=== PATIENT | female | born 1945 | race Caucasian/White ===

== ENCOUNTER → 2017-11-02 | Outpatient (CLI) | payer MEDICARE | END | disposition home or self-care (01) | LOC: PCVCCLINIC 14:26 | DX: I25.10 Atherosclerotic heart disease of native coronary artery without angina pectoris (principal); E78.5 Hyperlipidemia, unspecified; I10 Essential (primary) hypertension; I45.10 Unspecified right bundle-branch block; I65.23 Occlusion and stenosis of bilateral carotid arteries; R94.31 Abnormal electrocardiogram [ECG] [EKG]; Z95.1 Presence of aortocoronary bypass graft; Z86.711 Personal history of pulmonary embolism; Z88.0 Allergy status to penicillin; Z79.82 Long term (current) use of aspirin; Z79.899 Other long term (current) drug therapy | CPT/HCPCS: 80061; 93005; G0463 ==

== ENCOUNTER → 2018-05-10 | Outpatient (CLI) | payer MEDICARE ==
--- NOTE | 2018-05-10 12:46 | PCVCIMAG ---
APPROVED REPORT Indications Stenosis Risk Factors Hypertension: Doppler Spectral Velocity Analysis PSV / EDVPSV / EDV ECA (R) 75 / 6 cm/sECA (L) 87 / 16 cm/s dICA (R) 73 / 19 cm/sdICA (L) 64 / 17 cm/s Anastasia (R) 68 / 19 cm/smICA (L) 79 / 21 cm/s pICA (R) 65 / 16 cm/spICA (L) 102 / 19 cm/s Bulb (R) 73 / 14 cm/sBulb (L) 75 / 14 cm/s dCCA (R) 74 / 14 cm/sdCCA (L) 82 / 16 cm/s mCCA (R) 81 / 14 cm/smCCA (L) 85 / 17 cm/s Vert (R) 51 / 8 cm/sVert (L) 46 / 11 cm/s ICA/CCA 0.99ICA/CCA 1.24 Basic Measurements Blood Pressure: Pulses: Right Left RightLeft Brachial(Sitting) 134/52ytEx497/78mmHgTemporal Real Time B-Mode Imaging Vert. (R)AntegradeVert. (L)Antegrade Findings The right carotid bulb has mild plaque. The right proximal internal carotid artery shows <40% stenosis. The right common carotid artery shows no significant stenosis. The right external carotid artery shows no significant stenosis. The left carotid bulb has mild plaque. The left proximal internal carotid artery shows no significant stenosis. The left common carotid artery shows no significant stenosis. The left external carotid artery shows no significant stenosis. Conclusion 1. Right internal carotid artery stenosis (<40%) 2. Left internal carotid artery plaquing without significant stenosis 3. Antegrade vertebral flow
--- NOTE | 2018-05-10 16:05 | PCVCIMAG ---
APPROVED REPORT Study performed: 05/10/2018 11:47:48 Exam: Stress Echocardiogram Indication: CAD s/p CABG Patient Location: Echo lab Stress Nurse: Danielle Moore RN Room #: 2 Status: routine Ht: 5 ft 5 in HR: 70 bpm BP: 126/78 mmHg Rhythm: Bifascicular block Medical History Medical History: CAD s/p CABG,HTN,HX PULM EMBOLI Cardiac Risk Factors: HTN,DSLP, Previous Cardiac Procedures: CABG Pretest Chest Pain Characteristics: No chest pain Exercise History: Indeterminate Procedure The patient underwent an Exercise Stress Test using the Agustin Protocol. Blood pressure, heart rate, and EKG were monitored. An Echocardiogram was performed by biomedical repair technician in four stages in quad fashion. At peak stress, four selected images were obtained and placed side by side with resting images for comparison. Stress Test Details Stress Test: Exercise stress testing was performed using a Agustin protocol. HR Resting HR: 70 bpmMax Heart Rate (APMHR): 148 bpm Max HR Achieved: 136 bpmTarget HR (85% APMHR): 125 bpm % of APMHR: 91 Recovery HR: 86 bpm HR response to stress: Normal HR response to stress BP Resting BP: 126/78 mmHg Max BP: 180/80 mmHg Recovery BP: 160/80 mmHg ECG Resting ECG: Sinus Rhythm, RBBB Stress ECG: same ST Change: Normal Maximum ST Deviation: 0 mm Arrhythmia: Rare PVCs Recovery ECG: Sinus Rhythm, RBBB Recovery ST Change: same Recovery ST Deviation: 0 mm Recovery Arrhythmia: None Clinical Reason for Termination: Maximal effort Stress Symptoms: none Exercise duration: 7 min 31 sec Highest Stage Achieved: Stage 3: 3.4 mph at 14% grade. Exercise capacity: 10.1 METs Overall Exercise Capacity for Age: Average Scale: Active Angina Score: None No complications. Stress ECG Conclusion The patient exercised according to the AGUSTIN protocol for 7:31 mins; achieving a work level of 10.1 METS. The resting heart rate of 70 bpm ana to a maximum heart rate of 136 bpm. This value represent 91% of the maximal, age-predicted heart rate. The resting blood pressure of 126/78 mmHg, ana to a maximum blood pressure of 180/80mmHg. The exercise test was stopped due to fatigue. [place]ante Treadmill Score is 7.0 which is Low risk. Pre-Stress Echo The resting Echocardiogram showed normal left ventricular contractility with an estimated Ejection Fraction of about 55-60%. Normal wall motion in all segments on baseline images. Post-Stress Echo The stress Echocardiogram showed normal left ventricular contractility with an estimated Ejection Fraction of about 65-70%. Normal augmentation of wall motion in all segments on post stress images. Clinical No clinical or ECG evidence for ischemia. Conclusion Clinical Response: Non-ischemic Exercise Capacity: Average Stress ECG Response: Non-ischemic Stress Echo Images: Non-ischemic No clinical, EKG or echocardiographic evidence for ischemia. No echocardiographic evidence for exercise induced ischemia. Normal stress echocardiogram with maximal exercise stress. <Conclusion> No clinical, EKG or echocardiographic evidence for ischemia. No echocardiographic evidence for exercise induced ischemia. Normal stress echocardiogram with maximal exercise stress.
== END | disposition home or self-care (01) ==
LOC: PCVCIMAG 11:05
PROVIDERS: ATTEND Internal Medicine
DX: I65.21 Occlusion and stenosis of right carotid artery (principal); I25.10 Atherosclerotic heart disease of native coronary artery without angina pectoris; I45.10 Unspecified right bundle-branch block; I10 Essential (primary) hypertension
CPT/HCPCS: 93325; 93351; 93880

== ENCOUNTER → 2018-11-10 | Outpatient (CLI) | payer MEDICARE | END | disposition home or self-care (01) | LOC: PCVCCLINIC 12:20 | PROVIDERS: ATTEND Internal Medicine | DX: I25.10 Atherosclerotic heart disease of native coronary artery without angina pectoris (principal); E78.5 Hyperlipidemia, unspecified; I10 Essential (primary) hypertension; I45.10 Unspecified right bundle-branch block; I65.23 Occlusion and stenosis of bilateral carotid arteries; Z95.1 Presence of aortocoronary bypass graft; Z86.711 Personal history of pulmonary embolism; Z79.82 Long term (current) use of aspirin; Z88.0 Allergy status to penicillin | CPT/HCPCS: 36415; 80061; 93005; G0463 ==